=== PATIENT | male | born 1975 | race Caucasian/White ===

== ENCOUNTER 2018-10-26 21:46 | Emergency (ER) | payer SELFPAY ==
[~2018-10-26] VITALS: Ht 190.5 cm; Wt 117.9 kg
[2018-10-26] MEDS ORDERED: TRAMADOL HCL 50 MG TAB PO ONE (22:15)
== END 2018-10-26 22:45 | disposition home or self-care (01) ==
LOC: FSED 21:46
DX: K08.89 Other specified disorders of teeth and supporting structures (principal); R68.84 Jaw pain; K04.7 Periapical abscess without sinus; F17.210 Nicotine dependence, cigarettes, uncomplicated
CPT/HCPCS: 99282